=== PATIENT | male | born 1950 | race Two or more races ===

== ENCOUNTER 2018-07-09 23:26 | Inpatient (IN) | payer OTHER ==
[~2018-07-09] VITALS: Ht 160 cm; Wt 95.3 kg
[2018-07-09] MEDS ORDERED: VASOTEC5 MG (23:42)
== END 2018-07-15 17:10 | DRG 282 ==
LOC: ER 23:26 → MEDI 07-10 06:39 → SEC-K 07-10 06:39 → MEDI 07-10 11:12
PROC: BR2CZZZ Computerized Tomography (CT Scan) of Pelvis (ICD-10-PCS; 2018-07-10)
PROC: B345ZZZ Ultrasonography of Bilateral Common Carotid Arteries (ICD-10-PCS; 2018-07-10)
PROC: B348ZZZ Ultrasonography of Bilateral Internal Carotid Arteries (ICD-10-PCS; 2018-07-10)
PROC: B246ZZZ Ultrasonography of Right and Left Heart (ICD-10-PCS; 2018-07-10)
PROC: 4A12X4Z Monitoring of Cardiac Electrical Activity, External Approach (ICD-10-PCS; 2018-07-10)
PROC: B030ZZZ Magnetic Resonance Imaging (MRI) of Brain (ICD-10-PCS; 2018-07-11)
PROC: B44HZZZ Ultrasonography of Bilateral Lower Extremity Arteries (ICD-10-PCS; principal; 2018-07-12)
PROC: B54DZZZ Ultrasonography of Bilateral Lower Extremity Veins (ICD-10-PCS; 2018-07-12)
DX: I21.4 Non-ST elevation (NSTEMI) myocardial infarction (principal); R55 Syncope and collapse; I10 Essential (primary) hypertension; E11.9 Type 2 diabetes mellitus without complications; G47.33 Obstructive sleep apnea (adult) (pediatric); S70.02XA Contusion of left hip, initial encounter; W01.0XXA Fall on same level from slipping, tripping and stumbling without subsequent striking against object, initial encounter; Y93.89 Activity, other specified; Y92.098 Other place in other non-institutional residence as the place of occurrence of the external cause; Y99.8 Other external cause status; E66.01 Morbid (severe) obesity due to excess calories; I87.2 Venous insufficiency (chronic) (peripheral); L89.612 Pressure ulcer of right heel, stage 2
CPT/HCPCS: 70553

== ENCOUNTER 2018-07-17 16:46 | Emergency (ER) | payer OTHER ==
[~2018-07-17] VITALS: Ht 160 cm; Wt 113.4 kg
[~2018-07-17 16:46] MED LIST: VASOTEC5 MG
== END 2018-07-19 19:37 ==
LOC: ER 16:46
DX: L89.159 Pressure ulcer of sacral region, unspecified stage (principal); L89.522 Pressure ulcer of left ankle, stage 2; J40 Bronchitis, not specified as acute or chronic; R33.8 Other retention of urine; N39.0 Urinary tract infection, site not specified; R31.29 Other microscopic hematuria; Z74.01 Bed confinement status; Z60.2 Problems related to living alone

== ENCOUNTER 2018-07-21 19:00 | Inpatient (IN) | payer OTHER ==
[~2018-07-21] VITALS: Ht 160 cm; Wt 94.3 kg
== END 2018-07-31 19:06 | disposition home or self-care (01) | DRG 191 ==
LOC: ER 19:00 → MEDI 07-22 08:17
PROC: 3E0F7GC Introduction of Other Therapeutic Substance into Respiratory Tract, Via Natural or Artificial Opening (ICD-10-PCS; principal; 2018-07-22)
PROC: BW24ZZZ Computerized Tomography (CT Scan) of Chest and Abdomen (ICD-10-PCS; 2018-07-22)
PROC: BW28ZZZ Computerized Tomography (CT Scan) of Head (ICD-10-PCS; 2018-07-22)
DX: J44.1 Chronic obstructive pulmonary disease with (acute) exacerbation (principal); N39.0 Urinary tract infection, site not specified; J98.11 Atelectasis; J20.9 Acute bronchitis, unspecified; J44.0 Chronic obstructive pulmonary disease with (acute) lower respiratory infection; R09.02 Hypoxemia; B96.5 Pseudomonas (aeruginosa) (mallei) (pseudomallei) as the cause of diseases classified elsewhere; F70 Mild intellectual disabilities; I25.10 Atherosclerotic heart disease of native coronary artery without angina pectoris; I10 Essential (primary) hypertension; E11.9 Type 2 diabetes mellitus without complications; I73.9 Peripheral vascular disease, unspecified; F41.9 Anxiety disorder, unspecified; D72.828 Other elevated white blood cell count; R55 Syncope and collapse; Z86.73 Personal history of transient ischemic attack (TIA), and cerebral infarction without residual deficits; L89.150 Pressure ulcer of sacral region, unstageable; L89.622 Pressure ulcer of left heel, stage 2; L89.320 Pressure ulcer of left buttock, unstageable; R31.0 Gross hematuria